=== PATIENT | female | born 1965 | race Caucasian/White ===

== ENCOUNTER 2017-02-12 15:43 | Emergency (ER) | payer SELFPAY ==
[~2017-02-12] VITALS: Ht 157.5 cm; Wt 83.9 kg
--- NOTE | 2017-02-12 15:50 | NUR ---
PT TO ED DT LEFT FLANK PAIN, SHARP, 10/10 - HEMATURIA, -DYSURIA, NAD NOTED, VSS, RESP EVEN AND UNLABORED, PUT ON HOSPITAL GOWN. WAITING FOR MD PABLO
[2017-02-12 17:21] LABS: BASOPHILS # (AUTO) 0.1 /CMM (0.0-0.2); BASOPHILS % (AUTO) 0.6 % (0.0-2.0); EOSINOPHILS # (AUTO) 0.2 /CMM (0.0-0.7); EOSINOPHILS % (AUTO) 1.4 % (0.0-6.0); HEMATOCRIT 44 % (33-45); HEMOGLOBIN 14.2 g/dL (11.5-14.8); LYMPHOCYTES # (AUTO) 1.9 /CMM (0.8-4.8); LYMPHOCYTES % (AUTO) 15.5 % (20.0-44.0); MEAN CORPUSCULAR HEMOGLOBIN 28 PG (26.0-33.0); MEAN CORPUSCULAR HGB CONC 33 g/dl (31.0-36.0); MEAN CORPUSCULAR VOLUME 86 fL (82-100); MONOCYTES # (AUTO) 0.5 /CMM (0.1-1.30); MONOCYTES % (AUTO) 4.2 % (2.0-12.0); NEUTROPHILS # (AUTO) 9.7 /CMM (1.8-8.9); NEUTROPHILS % (AUTO) 78.3 % (43.0-81.0); PLATELET COUNT (AUTO) 302 /CMM (150-450); RDW COEFFICIENT OF VARIATION 11.9 (11.5-15.0); RED BLOOD CELL COUNT(AUTO) 5.05 MIL/uL (4.0-5.2); WHITE BLOOD COUNT (AUTO) 12.4 K/uL (4.3-11.0)
[2017-02-12 17:23] LABS: APPEARANCE,URINE Clear (CLEAR); BILIRUBIN,URINE Negative (NEGATIVE); BLOOD, URINE Small Ery/uL (NEGATIVE); COLOR,URINE Yellow (YELLOW); KETONES,URINE Negative (NEGATIVE); LEUKOCYTE ESTERASE ,URINE Negative (NEGATIVE); NITRITE, URINE Negative (NEGATIVE); PROTEIN,URINE 30 mg/dl (NEGATIVE); UGLUCOSE Negative (NEGATIVE); UROBILINOGEN,URINE 0.2 EU/dL (0.2)
[2017-02-12 17:31] LABS: CALCIUM, SERUM 8.9 mg/dL (8.5-10.1); CREATININE 0.7 mg/dL (0.6-1.3); POTASSIUM 4.2 mmol/L (3.5-5.1)
--- NOTE | 2017-02-12 17:34 | NUR ---
PT BACK FROM [facility]
[2017-02-12 17:41] LABS: BACTERIA,URINE Few /HPF (None Seen); SQUAMOUS EPITHELIAL CELL,UR Moderate /HPF (None Seen); WBC,URINE 0-2 /HPF (0-3)
[2017-02-12 17:42] LABS: MUCUS,URINE Few /LPF (None Seen); URINE AMORPHOUS URATE Few /HPF (None Seen)
[2017-02-12 20:27] VITALS: BP 145/80
== END 2017-02-12 20:29 | disposition home or self-care (01) ==
LOC: ER 15:45
DX: R10.32 Left lower quadrant pain (principal); R11.2 Nausea with vomiting, unspecified; I10 Essential (primary) hypertension; Z90.710 Acquired absence of both cervix and uterus
CPT/HCPCS: 36415; 74176; 76856; 80048; 81001; 84703; 85025; 87086; 96361; 96374; 96375; 99285; A4606; J1885 ×2; J2270; J2405; J7030; Z7610; 81000-TC

== ENCOUNTER 2018-09-16 22:34 | Emergency (ER) | payer SELFPAY ==
[~2018-09-16] VITALS: Ht 152.4 cm; Wt 88.9 kg
--- NOTE | 2018-09-16 23:00 | NUR ---
BIBS FOR C/O H/A. A. OX4. BREATHING EVENLY. REPORTED EPISDOES OF N/V AT HOME. PLACED ON A MONITOR, VSS . WILL CONT TO MONITOR ,
[2018-09-16] MEDS ORDERED: ONDANSETRON HCL/PF 4 MG/2 ML VIAL ONE (23:40)
--- NOTE | 2018-09-16 23:41 | NUR ---
YASMINEFRAN GIVEN O R DELTOID ORDERED.
[2018-09-17] MEDS ORDERED: ONDANSETRON HCL/PF 4 MG/2 ML VIAL IM ONE
--- NOTE | 2018-09-17 00:33 | NUR ---
Patient is resting comfortably in bed . FAMILY AT THE BEDSIDE. ON CONT. MONITORING. WILL CONT TO MONITOR
--- NOTE | 2018-09-17 01:59 | NUR ---
Patient is resting comfortably in bed with eyes closed. Easily aroused. VSS
--- NOTE | 2018-09-17 02:21 | NUR ---
Patient discharged to home in stable condition. Written and verbal after care instructions given. Patient verbalizes understanding of instruction.
[2018-09-17 02:25] VITALS: BP 139/75
--- NOTE | 2018-09-17 02:26 | NUR ---
Patient discharged to home in stable condition. Written and verbal after care instructions given. Patient verbalizes understanding of instruction.
== END 2018-09-17 02:25 | disposition home or self-care (01) ==
LOC: ER 22:37
DX: R11.0 Nausea (principal); J06.9 Acute upper respiratory infection, unspecified; I10 Essential (primary) hypertension
CPT/HCPCS: 71045; 96372; 99283; J2405